=== PATIENT | female | born 1995 | race Caucasian/White ===

== ENCOUNTER → 2020-04-17 | Outpatient (CLI) | payer OTHER | END | disposition home or self-care (01) | LOC: STAR 08:25 | PROVIDERS: ATTEND Surgery | DX: Z20.822 Contact with and (suspected) exposure to COVID-19 (principal); L05.91 Pilonidal cyst without abscess | CPT/HCPCS: 87635 ==

== ENCOUNTER 2020-04-23 07:58 | Day surgery (SDC) | payer OTHER ==
[~2020-04-23] VITALS: Ht 167.6 cm; Wt 65.7 kg
[~2020-04-23 07:58] MED LIST: BUPIVACAINE LIPOSOME/PF 10ML INFIL ONE
[2020-04-23 08:59] LABS: HCG UR SG 1.023 (1.003-1.030)
[2020-04-23] MEDS ORDERED: CHLORHEXIDINE 15 ML UDC ONE (09:09)
[2020-04-23 09:17] VITALS: BP 118/79
[2020-04-23] MEDS ORDERED: NO HOME MEDS PER PT (09:17)
[2020-04-23] MEDS ORDERED: CHLORHEXIDINE 15 ML UDC MM ONE (09:30)
[2020-04-23] MEDS ORDERED: LACTATED RINGERS 1,000 ML IV SCH (09:30)
[2020-04-23] MEDS ORDERED: MIDAZOLAM 1 MG/ML, 2ML ONE (09:31)
[2020-04-23] MEDS ORDERED: FENTANYL PF 250 MCG/5ML ONE (09:31)
[2020-04-23] MEDS ORDERED: KETOROLAC 30 MG/1 ML ONE ×2 (09:37→10:32)
[2020-04-23] MEDS ORDERED: LABETALOL 5MG/ML, 20ML IV PRN (10:00)
[2020-04-23] MEDS ORDERED: FENTANYL PF 100 MCG/2ML IV PRN (10:00)
[2020-04-23] MEDS ORDERED: PROMETHAZINE 25 MG/ML, 1ML IVPush PRN (10:00)
[2020-04-23] MEDS ORDERED: OXYcodone 5 MG/5 ML ORAL.SOL UDC PO PRN (10:00)
[2020-04-23] MEDS ORDERED: MEPERIDINE/PF 25MG/0.5ML IVPush PRN (10:00)
[2020-04-23] MEDS ORDERED: HALOPERIDOL 5 MG/ML IV PRN (10:00)
[2020-04-23] MEDS ORDERED: ACETAMINOPHEN 325 MG TABLET PO PRN (10:00)
[2020-04-23] MEDS ORDERED: HYDROmorphone 1 MG/ML, 1ML INJ IVPush PRN (10:00)
[2020-04-23] MEDS ORDERED: hydrALAzine 20 MG/ML, 1ML IV PRN (10:00)
[2020-04-23] MEDS ORDERED: DIPHENHYDRAMINE 50 MG/ML, 1ML IVPush PRN (10:00)
[2020-04-23] MEDS ORDERED: EPINEPHRINE 1 MG/ML, 1ML ONE (10:08)
[2020-04-23] MEDS ORDERED: BUPIVACAINE/PF 0.5% ONE (10:08)
[2020-04-23] MEDS ORDERED: NEOSTIGMINE 1 MG/ML, 10ML ONE (10:52)
[2020-04-23] MEDS ORDERED: DEXAMETHASONE 4 MG/ML, 1ML ONE (10:52)
[2020-04-23] MEDS ORDERED: CEFAZOLIN 1,000 MG ONE (10:52)
[2020-04-23] MEDS ORDERED: ONDANSETRON 2MG/ML, 2ML ONE (10:52)
[2020-04-23] MEDS ORDERED: GLYCOPYRROLATE 0.2MG/1ML, 5ML ONE (10:52)
[2020-04-23] MEDS ORDERED: SUCCINYLCHOLINE 20 MG/ML, 10ML ONE (10:52)
[2020-04-23] MEDS ORDERED: PROPOFOL 10 MG/ML, 20ML ONE (10:52)
[2020-04-23] MEDS ORDERED: ROCURONIUM 10MG/ML,5ML ONE (10:52)
[2020-04-23] MEDS ORDERED: OXYC1TAB14 PO (11:16)
[2020-04-23] MEDS ORDERED: MEPERIDINE/PF 25MG/ML,1ML ONE (11:17)
== END 2020-04-23 12:55 | disposition home or self-care (01) ==
LOC: OUT 07:58
PROVIDERS: ATTEND Surgery
DX: L05.91 Pilonidal cyst without abscess (principal); F17.210 Nicotine dependence, cigarettes, uncomplicated; Z72.89 Other problems related to lifestyle
CPT/HCPCS: 11771; 81025; 88304; J0171; J0330; J1100; J1885; J2250; J2405; J2704; J3010; J7120; J0690; J2710